=== PATIENT | male | born 1945 | race Caucasian/White ===

== ENCOUNTER 2023-01-29 09:19 | Emergency (ER) | payer MEDICARE, SELFPAY ==
[2023-01-29] VITALS (13 sets, daily range): BP systolic 135; BP diastolic 60; PULSE 83; O2SAT 90–97
--- NOTE | 2023-01-29 05:45 | DI.CT_ITS ---
Exam(s) CT CHEST/ABD/PEL WO CT THORACIC LUMBAR SPINE REC EXAM: CT CHEST/ABD/PEL WO CLINICAL HISTORY: pain, fall from bed unwitnessed trauma. TECHNIQUE: Imaging Protocol: Axial computed tomography images with coronal and sagittal reformatted images were created and reviewed Additional CONTRAST MATERIAL: Intravenous: Omnipaque 350 Contrast volume:100 ml Oral: no COMPARISON: CT CT THORACIC LUMBAR SPINE REC from 01/29/2023 FINDINGS: CHEST: Exam is limited by respiratory motion. Tracheobronchial tree: Patent where visualized. Pulmonary parenchyma: No consolidation or dominant measurable mass. Pleura: No effusion or pneumothorax. Lymph nodes: Within normal limits. Aorta: Thoracic portion non-dilated. Heart: Normal size. Mild coronary artery calcifications. Bones: Degenerative changes. Dextro scoliosis. No lytic or blastic lesions.No compression fractures . Sternal wires. No rib fractures identified. ABDOMEN: Stomach and small bowel: No feeding tube. Liver: Normal density. No measurable mass. Gallbladder and biliary tract: No radiodense calculus or dilation. Pancreas: Normal density, no abnormal calcifications or inflammatory process. Spleen: Normal. Kidneys: Bilateral renal calculi. Severe right hydronephrosis. Calculus seen in dependent portion o f the right renal pelvis. Right ureter dilated down to level of ureterovesical junction greatest in this area is obscured by artifact from hip prosthesis. Distal stone not excluded. No suspicious mas ses seen. Adrenal glands: No masses seen. Aorta: Abdominal portion non-dilated. Lymph nodes: Within normal limits. Soft tissues: A tract is noted related to prior feeding tube at the level of the antrum of the stomac h. Air bubbles noted as well as some stranding in the fat. No drainable collection. Large fatty co ntaining umbilical hernia. PELVIS: Exam limited by streak artifact from bilateral hip prostheses is well as patient arm position ing. Bladder: Partially obscured by artifact. Visualized portions unremarkable. Bowel: No obstruction or bowel wall thickening. Peritoneal cavity: Small amount free air in the upper abdomen. No focal collection or mesenteric inf lammatory response. Bones: Bilateral hip prostheses. Degenerative changes lumbar spine. No evidence of fracture. Reproductive organs: Mostly obscured by artifact. Metallic seeds noted. IMPRESSION: No acute abnormality in the chest. The patient pulled out the feeding tube in there is some air in the soft tissues as well as a small a mount of adjacent intra-abdominal free air. Severe right hydronephrosis. Bilateral renal calculi. The region of the ureterovesical junction is obscured by artifact. Stone not excluded in this location. No evidence of fracture in the thoracic or lumbar spine. RADIATION DOSE DELIVERED: Total DLP DATA REPOSITORY: All CT scans at this facility are submitted to the National Radiology Data Registry (NRDR) Dose Index Registry (DIR) with the [employer] (A[employer]). RADIATION OPTIMIZATION: All CT scans at this facility use at least one of these dose optimization te chniques: automated exposure control; mA and/or kV adjustment per patient size (includes targeted exa ms where dose is matched to clinical indication); or iterative reconstruction.
--- NOTE | 2023-01-29 05:45 | DI.CT_ITS ---
Exam(s) CT HEAD CERVICAL SPINE WO EXAM: CT HEAD CERVICAL SPINE WO CLINICAL HISTORY: Pain, fall from bed, unwitnessed trauma, pulled out feeding tube. TECHNIQUE: Imaging Protocol: Axial computed tomography images with coronal and sagittal reformatted images were created and reviewed COMPARISON: No exams were available for comparison FINDINGS: Head CT Ventricles and Extra axial spaces: Normal in size and morphology for the patient's age. Hemorrhage: None. 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 Mild white matter changes of sma ll vessel disease. No acute hemorrhage or mass. Mild atrophy. Midline shift: None. Brainstem/Cerebellum: Normal. Calvarium: Normal. Visualized Paranasal sinuses/Mastoids: Mild mucous retention floors of the maxillary sinuses. Soft tissues: Unremarkable. Cervical Spine CT BONES: Vertebral body heights are maintained. Alignment is normal. There is no evidence of acute frac ture. Degenerative disc changes and facet degenerative changes are seen . SOFT TISSUES: No paraspinal hematoma. The airway appears intact. No pneumothorax is seen at the lung apices. IMPRESSION: Head CT: No acute abnormality. C-spine CT: Degenerative changes, no acute abnormality. RADIATION DOSE DELIVERED: 1,440.04mGy.cm Total DLP DATA REPOSITORY: All CT scans at this facility are submitted to the National Radiology Data Registry (NRDR) Dose Index Registry (DIR) with the [employer] (ACR). RADIATION OPTIMIZATION: All CT scans at this facility use at least one of these dose optimization te chniques: automated exposure control; mA and/or kV adjustment per patient size (includes targeted exa ms where dose is matched to clinical indication); or iterative reconstruction.
--- NOTE | 2023-01-29 07:45 | DI.CT_ITS ---
Exam(s) CT ABDOMEN PELVIS WO EXAM: CT ABDOMEN PELVIS WO CLINICAL HISTORY: Pulled G tube ?Leak. TECHNIQUE: Imaging Protocol: Axial computed tomography images with coronal and sagittal reformatted images were created and reviewed. Oral: yes / COMPARISON: CT CT THORACIC LUMBAR SPINE REC from 01/29/[address] CHEST/ABD/PEL WO from 01/29/2023 FINDINGS: ABDOMEN: Lung Bases: Expiratory motion. Normal where visualized. Liver: Normal density. No measurable mass. Gallbladder and biliary tract: No radiodense calculus or dilation. Pancreas: Normal density, no abnormal calcifications or inflammatory process. Spleen: Normal. Kidneys: Stable appearance right hydronephrosis and dilated right ureter. Again the ureteral vesicle junction region is obscured by artifact. Adrenal glands: No masses seen. Lymph nodes: Within normal limits. Abdominal Aorta: Abdominal portion non-dilated. PELVIS: Bladder: Obscured by artifact from hip prostheses. Wing catheter now in place. Bowel: Oral contrast was administered. The oral contrast has passed from the stomach into the small bowel as well as extends to the level of the colon. There is no evidence of extravasation of of the contrast. 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 No obstruction or bowel wall thickening. Mild sigmoid diverticulosis. Bubbles are noted in the anterior abdominal wall near the fistula. Rounded fluid density measuring 3.8 by 2.5 cm in the posterior subcutaneous fat may represent a large sebaceous cyst. Unchanged from recent prior. Peritoneal cavity: Bubbles of free air are again noted anteriorly in the upper abdomen. No ascites, collection or mesenteric inflammatory response. Reproductive organs: Obscured by artifact. Metallic seeds in the prostate Bones: Degenerative changes in the spine. Hip prostheses. IMPRESSION: Oral contrast was administered. No evidence of extravasation. Bubbles of free air remains present i n the upper abdomen and anterior abdominal wall in region of previous feeding tube. No evidence of b owel obstruction. Stable right hydronephrosis. Ureterovesical junction obscured by artifact from hip prostheses. Bila teral renal calculi. RADIATION DOSE DELIVERED: 1,314.21mGy.cm Total DLP DATA REPOSITORY: All CT scans at this facility are submitted to the National Radiology Data Registry (NRDR) Dose Index Registry (DIR) with the [employer] (ACR). RADIATION OPTIMIZATION: All CT scans at this facility use at least one of these dose optimization te chniques: automated exposure control; mA and/or kV adjustment per patient size (includes targeted exa ms where dose is matched to clinical indication); or iterative reconstruction.
--- NOTE | 2023-01-29 08:30 | DI.RAD_ITS ---
Exam(s) XR PORTABLE CHEST AP POST LINE EXAM: XR PORTABLE CHEST AP POST LINE CLINICAL HISTORY: pulled g tube, ? Leak, tube placement TECHNIQUE: 2D digital imaging was performed. COMPARISON: No exams were available for comparison FINDINGS: Nasogastric tube has been inserted which projects below the diaphragm. LUNGS: Clear. No pleural abnormality seen. HEART: Normal size. AORTA: Normal diameter. BONES: Degenerative changes in the spine and shoulders. Sternal wires. Soft tissues: Unremarkable. IMPRESSION: No acute findings. Status post placement of NG tube DATA REPOSITORY: RADIATION DOSE DELIVERED:
[2023-01-29] MEDS: Ondansetron 4 MG/2 ML VIAL (09:25)
[2023-01-29 11:04] LABS: HCT 47.5 % (40.0-50.0); HGB 15.7 g/dL (13.5-17.5); MCH 29.9 pg (27.0-33.0); MCHC 33.1 % (32.0-36.0); MCV 91 fL (80-95); RBC 5.25 10^6/uL (4.36-5.78); WBC 20.24 10^3/uL (4.4-10.8)
[2023-01-29 11:05] LABS: Absolute Lymphocyte Count 1.33 10^3/uL (1.2-3.4); Absolute Neutrophil Count 16.95 10^3/uL (1.2-6.7); Basophils % 0.4; Eosinophils % 2.6; Immature Grans % 0.4; Lymphocytes % 6.6; MPV 10.6 fL (8.0-11.0); Monocytes % 6.2; Neutrophils % 83.8; Platelet Count 238 10^3/uL (130-400); RDW 13.3 % (11.8-14.1); RDW-SD 44.7 fL
[2023-01-29 11:06] LABS: Abs Immature Grans 0.09 10^3/uL (0.0-0.06); Absolute Basophil Count 0.09 10^3/uL (0.0-0.2); Absolute Eosinophil Count 0.52 10^3/uL (0.0-0.7); Absolute Monocyte Count 1.26 10^3/uL (0.1-0.8)
[2023-01-29 11:07] LABS: INR 1.1 (0.9-1.1); PTT Activated 28.2 sec (21.5-31.9)
[2023-01-29 11:08] LABS: Albumin 3.4 g/dL (3.4-5.0); BUN 24 mg/dL (7-18); Bilirubin, Total 0.7 mg/dL (0.2-1.0); CREATININE 1.5 mg/dL (0.70-1.30); Calcium 9.7 mg/dL (8.5-10.1); Estimated GFR 47.06 (mL/min/1.73m2); Glucose 172 mg/dL (74-106)
[2023-01-29 11:09] LABS: ALT 31 U/L (16-63); AST 31 U/L (15-37); Alkaline Phosphatase 82 U/L (46-116); Anion Gap 5.2 mmol/L (3-11); CO2 33.8 mmol/L (21.0-32.0); Chloride 99 mmol/L (98-107); Magnesium 1.9 mg/dL (1.8-2.4); Potassium 3.9 mmol/L (3.5-5.1); Sodium 138 mmol/L (136-145)
[2023-01-29 11:11] LABS: Bilirubin Negative (Negative); Blood Small (Negative); Clarity Clear (Clear); Glucose Negative (Negative); Ketones Negative (Negative); Leukocyte Esterase Trace (Negative); Nitrite Negative (Negative); Urobilinogen 0.2 mg/dL (Up to 0.2)
[2023-01-29 11:12] LABS: Epithelial Cells Rare HPF (Negative)
[2023-01-29 11:13] LABS: Bacteria Few HPF (Negative); C & S Indicated? Yes; Mucus Trace (Negative)
[2023-01-29] MEDS: Omnipaque 350 MG/ML 50 ML BTL IJ (12:04)
[2023-01-29] MEDS: Breeza Beverage 473 ML BTL 900 ML PO (12:05)
--- NOTE | 2023-01-29 12:05 | ED.PROG_ITS ---
Date of service: 01/29/23 Time of Service: 12:05 Medical Decision Making Patient was signed out to me by my colleague Dr. Valdez. Please refer to downtime documentation for HPI physical exam assessment and plan. Abbreviated history, patient has MS, and stroke, MS causes right-sided facial deficits, stroke causes left-sided deficits. [facility], fell off his bed, was down for a few hours, and brought in. PEG tube was ripped out accidentally. It was a new PEG tube just placed a week or so ago. Initial CAT scan showed some old air bubbles likely from the recent procedure but no other acute process. Surgery was contacted, and recommended repeat CAT scan with oral water-soluble contrast secondary to patient's allergy. He had a questionable UTI, and was started on Zosyn as well. Repeat CT scan has just returned, and there appears to be no evidence of extravasation. We will reach out to surgery and discussed the case with them. Patient remained stable at baseline. 2:55 PM Discussed the case with her surgeon Dr. Ndiaye, she states that at this current stage the anesthesia team does not feel comfortable taking the patient to the OR. Additionally she does not feel comfortable at this stage with replacing the G-tube. She suspects that it may need to heal first. No GI is available here otherwise. Discussed the case with [facility], and they are unwilling to accept the patient. Patient will need medical management in the meantime as he has the NG tube in, and does need continued feeding as he cannot swallow or drink independently on his own. I did discuss admission here versus [place] per family, and they request specifically that he goes back to [place] as that is much closer to where the lives in [place]. I did reach out to [place] surgical team, and spoke with Dr. Lau, and after discussion of the patient's symptoms, and plan, she has graciously accepted the patient for transfer to [place] for management there with their gastroenterology and surgical team. I have extensively reviewed the treatment plan with the patient. I have addressed all patient concerns at this time. I have also discussed the plan with the admitting physician and they agree with the current assessment and plan and have agreed to assume responsibility for the patient. All parties demonstrate verbal understanding and agreement with our assessment and plan at this time. The documentation in this chart was dictated using [employer] dictation software. Please excuse any dictation errors. At time of transfer the patient was reassessed and continued to demonstrate No signs of acute respiratory distress requiring intubation, hemodynamic instability requiring pressor support, or rapidly declining mental status. 2nd CAT SCAN FINDINGS: ABDOMEN: Lung Bases: Expiratory motion. Normal where visualized. Liver: Normal density. No measurable mass. Gallbladder and biliary tract: No radiodense calculus or dilation. Pancreas: Normal density, no abnormal calcifications or inflammatory process. Spleen: Normal. Kidneys: Stable appearance right hydronephrosis and dilated right ureter. Again the ureteral vesicle junction region is obscured by artifact. Adrenal glands: No masses seen. Lymph nodes: Within normal limits. Abdominal Aorta: Abdominal portion non-dilated. PELVIS: Bladder: Obscured by artifact from hip prostheses. Wing catheter now in place. Bowel: Oral contrast was administered. The oral contrast has passed from the stomach into the small bowel as well as extends to the level of the colon. There is no evidence of extravasation of of the contrast. 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 No obstruction or bowel wall thickening. Mild sigmoid diverticulosis. Bubbles are noted in the anterior abdominal wall near the fistula. Rounded fluid density measuring 3.8 by 2.5 cm in the posterior subcutaneous fat may represent a large sebaceous cyst. Unchanged from recent prior. Peritoneal cavity: Bubbles of free air are again noted anteriorly in the upper abdomen. No ascites, collection or mesenteric inflammatory response. Reproductive organs: Obscured by artifact. Metallic seeds in the prostate Bones: Degenerative changes in the spine. Hip prostheses. IMPRESSION: Oral contrast was administered. No evidence of extravasation. Bubbles of free air remains present in the upper abdomen and anterior abdominal wall in region of previous feeding tube. No evidence of bowel obstruction. Stable right hydronephrosis. Ureterovesical junction obscured by artifact from hip prostheses. Bilateral renal calculi. 1st CAT SCAN Head CT Ventricles and Extra axial spaces: Normal in size and morphology for the patient's age. Hemorrhage: None. 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 Mild white matter changes of small vessel disease. No acute hemorrhage or mass. Mild atrophy. Midline shift: None. Brainstem/Cerebellum: Normal. Calvarium: Normal. Visualized Paranasal sinuses/Mastoids: Mild mucous retention floors of the maxillary sinuses. Soft tissues: Unremarkable. Cervical Spine CT BONES: Vertebral body heights are maintained. Alignment is normal. There is no evidence of acute fracture. Degenerative disc changes and facet degenerative changes are seen . SOFT TISSUES: No paraspinal hematoma. The airway appears intact. No pneumothorax is seen at the lung apices. IMPRESSION: Head CT: No acute abnormality. C-spine CT: Degenerative changes, no acute abnormality. FINDINGS: CHEST: Exam is limited by respiratory motion. Tracheobronchial tree: Patent where visualized. Pulmonary parenchyma: No consolidation or dominant measurable mass. Pleura: No effusion or pneumothorax. Lymph nodes: Within normal limits. Aorta: Thoracic portion non-dilated. Heart: Normal size. Mild coronary artery calcifications. Bones: Degenerative changes. Dextro scoliosis. No lytic or blastic lesions.No compression fractures. Sternal wires. No rib fractures identified. ABDOMEN: Stomach and small bowel: No feeding tube. Liver: Normal density. No measurable mass. Gallbladder and biliary tract: No radiodense calculus or dilation. Pancreas: Normal density, no abnormal calcifications or inflammatory process. Spleen: Normal. Kidneys: Bilateral renal calculi. Severe right hydronephrosis. Calculus seen in dependent portion of the right renal pelvis. Right ureter dilated down to level of ureterovesical junction greatest in this area is obscured by artifact from hip prosthesis. Distal stone not excluded. No suspicious masses seen. Adrenal glands: No masses seen. Aorta: Abdominal portion non-dilated. Lymph nodes: Within normal limits. Soft tissues: A tract is noted related to prior feeding tube at the level of the antrum of the stomach. Air bubbles noted as well as some stranding in the fat. No drainable collection. Large fatty containing umbilical hernia. PELVIS: Exam limited by streak artifact from bilateral hip prostheses is well as patient arm positioning. Bladder: Partially obscured by artifact. Visualized portions unremarkable. Bowel: No obstruction or bowel wall thickening. Peritoneal cavity: Small amount free air in the upper abdomen. No focal col lection or mesenteric inflammatory response. Bones: Bilateral hip prostheses. Degenerative changes lumbar spine. No evidence of fracture. Reproductive organs: Mostly obscured by artifact. Metallic seeds noted. IMPRESSION: No acute abnormality in the chest. The patient pulled out the feeding tube in there is some air in the soft tissues as well as a small amount of adjacent intra-abdominal free air. Severe right hydronephrosis. Bilateral renal calculi. The region of the ureterovesical junction is obscured by artifact. Stone not excluded in this location. No evidence of fracture in the thoracic or lumbar spine. Discharge Plan Disposition Patient Disposition: Critical Access Hospital Specific Critical Access Facility: [place] Condition: Good Discharge Details Chief Complaint: GenMedical Clinical Impression: Complication of gastrostomy tube, Fall, Acute UTI Primary Care Provider: Unknown,Unknown ED Provider: Dariel Menjivar
== END 2023-01-29 15:22 | disposition critical access hospital (66) ==
PROVIDERS: Emergency Provider Student in an Organized Health Care Education/Training Program
DX: K94.29 Other complications of gastrostomy (principal); W06.XXXA Fall from bed, initial encounter; M54.9 Dorsalgia, unspecified; M54.50 Low back pain, unspecified; Z79.01 Long term (current) use of anticoagulants; Z87.442 Personal history of urinary calculi; Z91.041 Radiographic dye allergy status; Z86.73 Personal history of transient ischemic attack (TIA), and cerebral infarction without residual deficits; Z66 Do not resuscitate; S09.90XA Unspecified injury of head, initial encounter; G71.00 Muscular dystrophy, unspecified; N13.6 Pyonephrosis; B95.2 Enterococcus as the cause of diseases classified elsewhere
CPT/HCPCS: 36415; 71045; 71250; 80053; 87040; 87077; 96374; 99285; 70450; 72125; 74176; 81003; 81015; 83735; 85025; 85610; 85730; 87086; 87186; J2405; Q9967